=== PATIENT | male | born 1975 | race Hispanic/Latino ===

== ENCOUNTER 2018-05-23 06:08 | Emergency (ER) | payer SELFPAY ==
[~2018-05-23] VITALS: Ht 175.3 cm; Wt 113.4 kg
[2018-05-23] MEDS ORDERED: SODIUM CHLORIDE 0.9% 1000ML 1,000 ML IV STA (06:24)
[2018-05-23 06:46] LABS: BASOPHILS % 0.4 % (0.0-1.0); EOSINOPHILS # (AUTO) 0.2 (0.0-0.4); EOSINOPHILS % 2.8 % (0.0-6.0); HEMATOCRIT 41.3 % (38.2-49.6); HEMOGLOBIN 12.9 g/dL (14.0-18.0); LYMPHOCYTES # (AUTO) 2.5 (1.0-3.2); LYMPHOCYTES % 31.6 % (18.0-39.1); MEAN CORPUSCULAR HEMOGLOBIN 27.3 pg (28-32); MEAN CORPUSCULAR HGB CONC 31.2 g/dL (31-35); MEAN CORPUSCULAR VOLUME 87.5 fL (81-99); MONOCYTES # (AUTO) 0.6 (0.2-0.8); NEUTROPHILS # (AUTO) 4.6 (2.1-6.9); NEUTROPHILS % 57.9 % (38.7-80.0); PLATELET COUNT 254 x10e3/uL (140-360); RED BLOOD COUNT 4.72 x10e6/uL (4.3-5.7); RED CELL DISTRIBUTION WIDTH 18.2 % (11.7-14.4)
[2018-05-23 06:47] LABS: BILIRUBIN,URINE NEGATIVE (NEGATIVE); CLARITY,URINE CLEAR (CLEAR); COLOR,URINE AMBER (YELLOW); KETONES,URINE NEGATIVE (NEGATIVE); LEUKOCYTE ESTERASE ,URINE NEGATIVE (NEGATIVE); NITRITE,URINE NEGATIVE (NEGATIVE); PROTEIN,URINE DIPSTICK 1+ (NEGATIVE); URINE UROBILINOGEN 0.2 mg/dL (0.2 - 1)
[2018-05-23 06:50] LABS: AMPHETAMINES SCREEN,URINE POSITIVE (NEGATIVE); BENZODIAZEPINES SCREEN,URINE NEGATIVE (NEGATIVE); PHENCYCLIDINE SCREEN,URINE NEGATIVE (NEGATIVE)
--- NOTE | 2018-05-23 06:55 | Diagnostic Imaging Report ---
CHEST SINGLE (PORTABLE), 05/23/2018 6:24 AM Technique: CHEST SINGLE (PORTABLE) Comparison: None available. Clinical history: Overdose Findings: Low lung volumes and portable technique result in accentuation of the cardiomediastinal silhouette and bibasilar vascular crowding. Suggestion of left basilar opacity. No effusion or pneumothorax. Impression: Left basilar opacity suspicious for aspiration. Recommend follow-up upright PA and lateral with improved inspiratory effort when feasible. Signed by: Dr Richa Ricks MD on 05/23/2018 6:52 AM
[2018-05-23 06:56] LABS: INR 1.06
[2018-05-23 06:57] LABS: EPITHELIAL CELLS,URINE FEW /LPF; MUCUS,URINE RARE (RARE); PARTIAL THROMBOPLASTIN TIME 27.7 seconds (23.8-35.5)
[2018-05-23 07:00] LABS: ACETAMINOPHEN < 3 ug/mL (10-30); ALBUMIN 3.7 g/dL (3.5-5.0); ALBUMIN/GLOBULIN RATIO 0.8 (0.8-2.0); ANION GAP 13.7 mmol/L (8-16); CALCIUM 9.4 mg/dL (8.4-10.2); CREATININE, SERUM 1.37 mg/dL (0.72-1.25); POTASSIUM 3.7 mmol/L (3.5-5.1); SALICYLATE < 5.0 mg/dL (0-30)
[2018-05-23 07:06] LABS: CREATINE KINASE MB 3.5 ng/mL (0-5.0)
[2018-05-23] MEDS ORDERED: DEXTROSE 50% SYRINGE 50 ML IV ONE ×2 (07:12→07:15)
[2018-05-23] MEDS ORDERED: NALOXONE HCL INJ 0.4 MG/ML AMP IV STA (07:42)
[2018-05-23] MEDS ORDERED: NALOXONE HCL INJ 0.4 MG/ML AMP IV PRN (07:45)
--- NOTE | 2018-05-23 08:11 | Diagnostic Imaging Report ---
PROCEDURE: X-RAY CHEST, TWO VIEWS COMPARISON: Patients [facility], DX, CHEST SINGLE (PORTABLE), 05/23/2018, 6:42. INDICATIONS: SHORTNESS OF BREATH FINDINGS: LUNGS: No consolidations. No change in the pulmonary vascular congestion. PLEURA: No effusions or pneumothorax. HEART \T\ MEDIASTINUM: The heart is within normal size-limits. BONES \T\ SOFT TISSUES: No acute findings. CONCLUSION: Mild pulmonary vascular congestion. Ej Ospina D.O. Dictated by: Ej Ospina D.O. on 05/23/2018 at 8:17 Electronically approved by: Ej Ospina D.O. on 05/23/2018 at 8:17
[2018-05-23 11:49] VITALS: BP 126/85
== END 2018-05-23 12:08 | disposition home or self-care (01) ==
LOC: ER 06:08
DX: F11.20 Opioid dependence, uncomplicated (principal); R06.02 Shortness of breath; F17.210 Nicotine dependence, cigarettes, uncomplicated
CPT/HCPCS: 36415; 51700; 71045; 71046; 80053; 80307; 80320; 80329 ×2; 81001; 82550; 82553; 83605; 83735; 83880; 84484; 85025; 85610; 85730; 87040; 87086; 93005; 99284; J2310; J7030; J7799